=== PATIENT | female | born 1940 | race Caucasian/White ===

== ENCOUNTER → 2018-06-25 | Outpatient (CLI) | payer MEDICARE, BC ==
[~2018-06-25] MED LIST: ARMOUR THYROID PO; ASPI81CH PO; ATOR40TA PO; Bactrim 400-801 EACH PO; CEPH500 PO; FAMO20 PO; HYDACE5 PO; METO25ER PO; MICROZIDE12.5 MG PO; PROM25 PO; SULTRIDS
== END | disposition home or self-care (01) ==
LOC: LAB EV 10:25 → LAB SHORT 10:25
DX: N39.0 Urinary tract infection, site not specified (principal)
CPT/HCPCS: 87077; 87086; 87186

== ENCOUNTER 2020-08-03 06:36 | Observation (INO) | payer MEDICARE, BC ==
[~2020-08-03] VITALS: Ht 165.1 cm; Wt 68.0 kg
[2020-08-03 07:07] LABS: BASOPHILS ABSOLUTE AUTO 0.06 K/mm3 (0.00-0.23); BASOPHILS PERCENT AUTO 1 % (0-2); EOSINOPHILS ABSOLUTE AUTO 0.13 K/mm3 (0.00-0.68); EOSINOPHILS PERCENT AUTO 2 % (0-6); Hematocrit 39.8 % (33.0-51.0); Hemoglobin 13.1 g/dL (11.5-16.0); IMMATURE GRAN ABSOLUTE AUTO 0.01 K/mm3 (0.00-0.10); IMMATURE GRAN PERCENT AUTO 0 % (0-1); LYMPHOCYTES ABSOLUTE AUTO 1.38 K/mm3 (0.84-5.20); LYMPHOCYTES PERCENT AUTO 23 % (21-46); MONOCYTES ABSOLUTE AUTO 0.47 K/mm3 (0.16-1.47); MONOCYTES PERCENT AUTO 8 % (4-13); Mean Corpuscular HGB 31.5 pg (26.0-34.0); Mean Corpuscular HGB Conc 32.9 g/dL (31.5-36.5); Mean Corpuscular Volume 96 fL (80-100); NEUTROPHILS ABSOLUTE AUTO 3.86 K/mm3 (1.96-9.15); NEUTROPHILS PERCENT AUTO 65 % (41-73); Platelet Count 232 K/mm3 (150-400); RDW Standard Deviation 45.7 fL (35.1-46.3); Red Blood Cell Count 4.16 M/mm3 (3.80-5.20); White Blood Cell Count 5.91 K/mm3 (4.00-11.30)
[2020-08-03 07:28] LABS: Alanine Aminotransfer (ALT/SGP 18 U/L (12-78); Albumin, Blood 3.6 g/dL (3.4-5.0); Alk Phos 64 U/L (50-136); Anion Gap 6 mmol/L (6-16); Aspartate Aminotrans (AST/SGOT 16 U/L (12-37); Bilirubin, Total 0.6 mg/dL (0.1-1.0); Blood Urea Nitrogen 18 mg/dL (8-24); Bun/Creatinine Ratio 19.4 (12.0-20.0); CO2, Blood 27 mmol/L (21-32); Calcium, Blood 9.2 mg/dL (8.5-10.1); Chloride, Blood 109 mmol/L (98-108); Creatinine, Blood 0.93 mg/dL (0.40-1.00); Globulin, Blood 3.6 g/dL (2.2-4.0); Glomerular Filtration Rate >60 (60-); Glucose, Blood 100 mg/dL (70-99); Potassium, Blood 4.1 mmol/L (3.5-5.5); Sodium, Blood 142 mmol/L (136-145); Total Protein, Blood 7.2 g/dL (6.4-8.2); Troponin I <0.015 ng/mL (0.000-0.040)
[2020-08-03 07:35] LABS: Free Thyroxine 0.97 ng/dL (0.70-1.60); Thyroid Stimulating Hormone 0.278 uIU/mL (0.360-4.800)
[2020-08-03] MEDS ORDERED: THYR60 PO (09:54)
[2020-08-03 10:11] LABS: Source, Urine Clean Catch
[2020-08-03 10:14] LABS: Bilirubin, Urine Neg (Neg); Blood, Urine 2+ (Neg); Glucose Qualitative, Urine Neg (Neg); Ketones, Urine Neg (Neg); Leukocyte Esterase, Urine 1+ (Neg); Nitrite, Urine Neg (Neg); Protein, Urine Neg (Neg); Urobilinogen, Urine NORM (Normal)
[2020-08-03 10:22] LABS: CHOL/HDL RATIO 2.3; Cholesterol 203 mg/dL (50-200); HDL Cholesterol 87 mg/dL (>39); LDL/HDL RATIO 1.1; Low Density Lipoprotein Chol 94 mg/dL (0-110); Triglycerides 112 mg/dL (30-160); Very Low Density Lipoprot Chol 22 mg/dL (6-32)
[2020-08-03 10:39] LABS: Appearance, Urine Clear (Clear); Color, Urine Pale Yellow (P-Yellow)
[2020-08-03 10:40] LABS: Bacteria Many /hpf; Squamous Epithelial Cells Rare /hpf (Few); White Blood Cells, Urine 0-2 /hpf (0-5)
--- NOTE | 2020-08-03 16:35 | NUR ---
PT ARRIVED BACK TO [facility]GIO REPORT RECEIVED FROM TAZ LONGORIA, RIGHT RADIAL ACCESS SITE TR BAND WITH 11CC'S OF AIR. NO HEMATOMA/BLEEDING ON THE SITE AND AROUND THE AREA, VITALS HRR SR 60-70'S, BP SYSTOLIC 130'S-150'S, SATS ABOVE 95% ON RA, AFEBRILE. SON AND DAUGHTER AT BEDSIDE, PT DENIES ANY CHEST PAIN, MILD TOLERABLE PAIN ON THE ACCESS SITE. PT HAS MILD-MODERATE DSE CAD, ON LAD AND LEFT CIRCUMFLEX NO INERVENTION WAS DONE CAN BE MEDICALLY MANAGED AT THIS POINT. NO OTHER ISSUES ENCOUNTERED FRO MOSES SHIFT, PT IN BED RESTING ABLE TO MAKE NEEDS KNOWN, WILL MONITOR UNTIL END OF SHIFT
--- NOTE | 2020-08-03 18:43 | NUR ---
TR BAND FULLY RECOVERED AT THIS TIME, TRANSPARENT DRESSIGN APPLIED ON RIGHT RADIAL ACCESS SITE, NO HEMATOMA OR BLEEDING NOTED. PT DENIES ANY CHEST PAIN, STARTED ON IMDUR PO THIS EVENING. VITALS HAS BEEN STABLE, WILL REPORT TO ONCOMING SHIFT.
--- NOTE | 2020-08-04 01:31 | NUR ---
SUMMARY PT A&O; PLEASANT & COMPLIANT W/ CARE; DENIES CHEST PAIN; VSS; NSR NOTED ON TELE W/ HR IN 60'S; O2 SATS > 93 ON RA ON SECOND DIGIT RIGHT HAND; R RADIAL SITE W/SCANT DRIED BLOOD W/ TEGADERM IN PLACE; ARM BOARD IN PLACE; PT EDUCATION PROVIDED W/ PRINTED MATERIAL FOR NEW CARDIAC MEDICATIONS; PT C/O HEADACHE AND EXPRESSED CONCERN W/ TAKING NARCOTICS; NOTIFIED AND NEW ORDER FOR TYLENOL GIVEN; 650MG TYLENOL ADMINISTERED PER EMAR AND ICE PACK OFFERED TO PT; CALL LIGHT IN REACH; BED IN LOWEST POSITION; REPORT GIVEN TO SWATI BUENO.
--- NOTE | 2020-08-04 01:32 | NUR ---
ASSUMPTION OF CARE AT THIS TIME PATIENT RESTING IN BED, CALL LIGHT IN REACH.
[2020-08-04 05:14] LABS: BASOPHILS ABSOLUTE AUTO 0.04 K/mm3 (0.00-0.23); BASOPHILS PERCENT AUTO 1 % (0-2); EOSINOPHILS ABSOLUTE AUTO 0.14 K/mm3 (0.00-0.68); EOSINOPHILS PERCENT AUTO 3 % (0-6); Hematocrit 35.8 % (33.0-51.0); Hemoglobin 11.5 g/dL (11.5-16.0); IMMATURE GRAN ABSOLUTE AUTO 0.02 K/mm3 (0.00-0.10); IMMATURE GRAN PERCENT AUTO 0 % (0-1); LYMPHOCYTES ABSOLUTE AUTO 1.15 K/mm3 (0.84-5.20); LYMPHOCYTES PERCENT AUTO 25 % (21-46); MONOCYTES ABSOLUTE AUTO 0.44 K/mm3 (0.16-1.47); MONOCYTES PERCENT AUTO 10 % (4-13); Mean Corpuscular HGB 31.6 pg (26.0-34.0); Mean Corpuscular HGB Conc 32.1 g/dL (31.5-36.5); Mean Corpuscular Volume 98 fL (80-100); NEUTROPHILS ABSOLUTE AUTO 2.84 K/mm3 (1.96-9.15); NEUTROPHILS PERCENT AUTO 61 % (41-73); Platelet Count 197 K/mm3 (150-400); RDW Coefficient Variation 13.1 % (11.7-14.2); RDW Standard Deviation 47.2 fL (35.1-46.3); Red Blood Cell Count 3.64 M/mm3 (3.80-5.20); White Blood Cell Count 4.63 K/mm3 (4.00-11.30)
[2020-08-04 05:38] LABS: Calcium, Blood 8.5 mg/dL (8.5-10.1); Potassium, Blood 4.1 mmol/L (3.5-5.5)
--- NOTE | 2020-08-04 06:50 | NUR ---
SHIFT SUMMARY PATIENT PLEASENT AND COOPERATIVE THROUGHOUT THE NIGHT. PATIENT REPORTED SHE WAS ABLE TO NAP ON AND OFF THROUGHOUT THE NIGHT. PATIENT'S TR SITE TO RIGTH WRIST APPEARS SOFT WITH NO SIGNS OF BLEEDING, BRUISING, OR HEMATOMA FORMATION NOTED. ARMBOARD IN PLACE. PATIENT REPORTS SLIGHT NAUSEA THIS AM, PATIETN PROVIDED WITH CRACKERS, PATIENT DENIED THE NEED FOR ANY FURTHER INTERVENTIONS AT THIS TIME. PATIENT MEDICATED FOR A HEADACHE PER EMAR. WILL CONTINUE TO MONITOR PATIENT AND REPROT TO ONCOMING RN.
--- NOTE | 2020-08-04 07:30 | NUR ---
ASSUMED CARE: PT AWAKE, SITTING UP IN BED. DENIES CHEST PAIN. RIGHT RADIAL SITE WITHOUT SIGN OF BRUISING OR HEMATOMA. PT STATES IMDUR GAVE HER A HEADACHE LAST NIGHT AND SHE IS HESITANT TO TAKE IT AGAIN UNTIL SPEAKING WITH MD. DENIES FURTHER NEEDS OR CONCERNS.
[2020-08-04] MEDS ORDERED: AMLO5 PO (09:13)
[2020-08-04] MEDS ORDERED: Aspirin EC81 MG PO (09:13)
[2020-08-04] MEDS ORDERED: METO25ER PO (09:13)
[2020-08-04] MEDS ORDERED: NITROGLYCERIN0.4 M3 SL (09:17)
[2020-08-04] MEDS ORDERED: ATOR20 PO (09:17)
--- NOTE | 2020-08-04 10:30 | NUR ---
DR CACERES CAME TO SEE PT AND CLEARED HER FOR DC. PROGRAM DIRECTOR AIR TALENT SPOKE WITH DR ARAUJO WHO STATED PT WAS FREE TO GO AND HE DID NOT NEED TO SEE HER PRIOR TO DC. PT TOLD DR CACERES THAT IMDUR GAVE HER SEVERE HEADACHE SO DR DISCONTINUED IT AND ORDERED SL NITRO INSTEAD. INSTRUCTIONS GIVEN TO PT REGARDING THIS WELL CARE FOR RADIAL SITE. INSTRUCTED PT ABOUT REMOVING DRESSING AND HOLDING PRESSURE IF BLEEDING OR SWELLING OCCURS. IV REMOVED WNL. DENIED FURTHER QUESTIONS OR CONCERNS. ESCORTED OUT VIA WHEEL CHAIR BY HOSPITAL STAFF.
== END 2020-08-04 10:27 | disposition home or self-care (01) ==
LOC: ER 06:36 → PCU 06:37 → ENPENDDIS 08-04 08:57 → PCU 08-04 10:27
PROVIDERS: Emergency Medicine; ADMIT Internal Medicine
PROC: 4A023N7 Measurement of Cardiac Sampling and Pressure, Left Heart, Percutaneous Approach (ICD-10-PCS; principal; 2020-08-03)
PROC: B2111ZZ Fluoroscopy of Multiple Coronary Arteries using Low Osmolar Contrast (ICD-10-PCS; principal; 2020-08-03)
DX: I25.110 Atherosclerotic heart disease of native coronary artery with unstable angina pectoris (principal); I44.7 Left bundle-branch block, unspecified; I08.1 Rheumatic disorders of both mitral and tricuspid valves; I37.1 Nonrheumatic pulmonary valve insufficiency; I11.9 Hypertensive heart disease without heart failure; E78.5 Hyperlipidemia, unspecified; I27.20 Pulmonary hypertension, unspecified; E03.9 Hypothyroidism, unspecified; K21.9 Gastro-esophageal reflux disease without esophagitis; Z23 Encounter for immunization; Z20.828 Contact with and (suspected) exposure to other viral communicable diseases; Z91.018 Allergy to other foods; Z79.82 Long term (current) use of aspirin; Z79.899 Other long term (current) drug therapy; Z90.710 Acquired absence of both cervix and uterus; Z87.891 Personal history of nicotine dependence; Z66 Do not resuscitate
CPT/HCPCS: 36415; 71045; 76937; 80048; 80053; 80061; 81001; 83880; 84439; 84443; 84484; 85025; 85347; 85379; 87077; 87086; 87186; 93005; 93010; 93306; 93454; 93571; 93572; 99152; 99153; 99285-25; A9270; A9270-GY; C1769; C1887; C1894; G0378; J1644; J2250; J3010; J7030; J7040; Q9967; U0004

== ENCOUNTER → 2021-09-29 | Outpatient (CLI) | payer MEDICARE, BC ==
[~2021-09-29] MED LIST changes: +AMLO5 PO; +ATOR20 PO; +Aspirin EC81 MG PO; +NITROGLYCERIN0.4 M3 SL; +THYR60 PO
[2021-09-29 13:17] LABS: BASOPHILS ABSOLUTE AUTO 0.01 K/mm3 (0.00-0.23); BASOPHILS PERCENT AUTO 0 % (0-2); EOSINOPHILS ABSOLUTE AUTO 0.02 K/mm3 (0.00-0.68); EOSINOPHILS PERCENT AUTO 0 % (0-6); Hematocrit 39.4 % (33.0-51.0); Hemoglobin 13.3 g/dL (11.5-16.0); IMMATURE GRAN ABSOLUTE AUTO 0.03 K/mm3 (0.00-0.10); IMMATURE GRAN PERCENT AUTO 1 % (0-1); LYMPHOCYTES PERCENT AUTO 16 % (21-46); MONOCYTES ABSOLUTE AUTO 0.22 K/mm3 (0.16-1.47); MONOCYTES PERCENT AUTO 5 % (4-13); Mean Corpuscular HGB 32.5 pg (26.0-34.0); Mean Corpuscular HGB Conc 33.8 g/dL (31.5-36.5); Mean Corpuscular Volume 96 fL (80-100); Mean Platelet Volume 11.5 fL (9.1-12.4); NEUTROPHILS ABSOLUTE AUTO 3.83 K/mm3 (1.96-9.15); NEUTROPHILS PERCENT AUTO 78 % (41-73); Platelet Count 174 K/mm3 (150-400); RDW Coefficient Variation 12.7 % (11.7-14.2); RDW Standard Deviation 45.1 fL (35.1-46.3); Red Blood Cell Count 4.09 M/mm3 (3.80-5.20); White Blood Cell Count 4.91 K/mm3 (4.00-11.30)
[2021-09-29 13:40] LABS: Alanine Aminotransfer (ALT/SGP 51 U/L (12-78); Albumin, Blood 3.2 g/dL (3.4-5.0); Albumin/Globulin Ratio 0.9 (0.8-1.8); Alk Phos 103 U/L (40-126); Anion Gap 9 mmol/L (6-16); Aspartate Aminotrans (AST/SGOT 65 U/L (12-37); Bilirubin, Total 0.2 mg/dL (0.1-1.0); Blood Urea Nitrogen 23 mg/dL (8-24); Bun/Creatinine Ratio 19.8 (12.0-20.0); CO2, Blood 29 mmol/L (21-32); Calcium, Blood 8.9 mg/dL (8.5-10.1); Chloride, Blood 105 mmol/L (98-108); Creatinine, Blood 1.16 mg/dL (0.40-1.00); Globulin, Blood 3.7 g/dL (2.2-4.0); Glomerular Filtration Rate 45 (60-); Glucose, Blood 101 mg/dL (70-99); Potassium, Blood 4.7 mmol/L (3.5-5.5); Sodium, Blood 143 mmol/L (136-145); Thyroid Stimulating Hormone 2.691 uIU/mL (0.360-4.800); Total Protein, Blood 6.9 g/dL (6.4-8.2); Troponin I <0.017 ng/mL (0.000-0.040)
== END | disposition home or self-care (01) ==
LOC: LAB SHORT 13:12
PROVIDERS: Chiropractor
DX: U07.1 COVID-19 (principal); R53.83 Other fatigue
CPT/HCPCS: 80053; 84443; 84484; 85025; 85379

== ENCOUNTER → 2021-11-19 | Outpatient (CLI) | payer OTHER ==
[2021-11-19 17:42] LABS: Source, Urine Voided
[2021-11-19 19:23] LABS: White Blood Cells, Urine 0-2 /hpf (0-5)
[2021-11-19 19:24] LABS: Bacteria Rare /hpf; Red Blood Cells, Urine 0-2 /hpf (0-2); Squamous Epithelial Cells Rare /hpf (Few)
[2021-11-19 19:24] LABS: Free Thyroxine 0.71 ng/dL (0.70-1.60); Thyroid Stimulating Hormone 3.94 uIU/mL (0.360-4.800); Triiodothyronine, Free 2.87 pg/mL (2.18-3.98)
== END ==
LOC: LAB SHORT 17:40
PROVIDERS: Registered Nurse Community Health
DX: E03.9 Hypothyroidism, unspecified (principal); R30.9 Painful micturition, unspecified
CPT/HCPCS: 81015; 84439; 84443; 84481; 87086

== ENCOUNTER 2025-01-01 10:46 | Emergency (ER) | payer OTHER ==
[~2025-01-01] VITALS: Ht 170.2 cm; Wt 65.8 kg
[2025-01-01] MEDS ORDERED: SULFAMETHOXAZO1 EACH PO (11:42)
[2025-01-01] MEDS ORDERED: FentaNYL Citrate 50 MCG/ML 2 ML Injection IV ONE (12:45)
[2025-01-01] MEDS ORDERED: HYDR1TAB94 PO (13:43)
[2025-01-01 13:45] VITALS: BP 165/78
== END 2025-01-01 14:02 | disposition home or self-care (01) ==
LOC: ER 10:46
DX: S52.532A Colles' fracture of left radius, initial encounter for closed fracture (principal); S52.612A Displaced fracture of left ulna styloid process, initial encounter for closed fracture; W01.0XXA Fall on same level from slipping, tripping and stumbling without subsequent striking against object, initial encounter; K21.9 Gastro-esophageal reflux disease without esophagitis; Z91.018 Allergy to other foods; Z79.82 Long term (current) use of aspirin; Z79.899 Other long term (current) drug therapy; Z87.891 Personal history of nicotine dependence
CPT/HCPCS: 29125; 73110; 99283-25; J3010

== ENCOUNTER 2025-01-08 09:31 | Day surgery (SDC) | payer OTHER ==
[~2025-01-08] VITALS: Ht 170.2 cm; Wt 69.0 kg
[~2025-01-08 09:31] MED LIST changes: +Bupivacaine 0.5% HCl 5 MG/ML 30MLVIAL ONE; +Bupivacaine 0.5% W/EPI 1:200000 SDV 30 ML Vial ONE; +Dexamethasone Sod Phos 10 MG/ML 1ML VIAL ONE; +FentaNYL Citrate 50 MCG/ML 2 ML Injection ONE; +HYDR1TAB94 PO; +Lactated Ringer's 1,000 ML IV ONE; +Midazolam HCl 1MG / ML 2ML Vial ONE; +Ondansetron HCl 2 MG / ML 2ML Vial ONE; +Rocuronium Bromide 10 MG/ML 5ML Injection IV ONE; +SULFAMETHOXAZO1 EACH PO; +propofoL 20 ML IV ONE
[2025-01-08] MEDS ORDERED: CeFAZolin Sodium 2,000 MG VIAL ONE (09:34)
[2025-01-08] MEDS ORDERED: Lactated Ringer's 1,000 ML IV ONE (09:56)
--- NOTE | 2025-01-08 10:13 | NUR ---
01/08/25 1013 ANDRES DIEZ POST OP EDUCATION COMPLETED, ALL PT QUESTIONS ANSWERED.
--- NOTE | 2025-01-08 11:02 | NUR ---
01/08/25 1101 Elizabeth Gee RN PREPPED WITH ALCOHOL, SWATI HEMPHILL PREPPED WITH CHLORAPREP
[2025-01-08] MEDS ORDERED: Metoclopramide HCl 5MG / ML 2ML Vial ONE (11:12)
[2025-01-08 12:33] VITALS: BP 155/77
== END 2025-01-08 13:08 | disposition home or self-care (01) ==
LOC: ORSCSDS 09:31 → ORD 01-13 11:30
PROVIDERS: Orthopaedic Surgery
PROC: 0PSJ04Z Reposition Left Radius with Internal Fixation Device, Open Approach (ICD-10-PCS; principal; 2025-01-08 10:30)
DX: S52.572A Other intraarticular fracture of lower end of left radius, initial encounter for closed fracture (principal); W18.30XA Fall on same level, unspecified, initial encounter; I10 Essential (primary) hypertension; I25.10 Atherosclerotic heart disease of native coronary artery without angina pectoris; E78.5 Hyperlipidemia, unspecified; K21.9 Gastro-esophageal reflux disease without esophagitis; E03.9 Hypothyroidism, unspecified; Z79.899 Other long term (current) drug therapy
CPT/HCPCS: C1713; J0690; J1100; J2250; J2405; J2704; J2765; J3010; J7120